=== PATIENT | male | born 1995 | race Caucasian/White ===

== ENCOUNTER 2016-12-06 12:11 | Emergency (ER) | payer OTHER ==
[2016-12-06 12:44] VITALS: BP 123/65
--- NOTE | 2016-12-06 12:54 | UC ---
Respiratory Complaint HPI - HPI Summary HPI Summary: 5 days of nasal congestion and cough worse beging last night---also has had a cold sore for a few days that he would like treated - History of Current Complaint Chief Complaint: UCRespiratory Stated Complaint: CHEST CONGESTION,COUGH,SORE THROAT,SINUS Time Seen by Provider: 12/06/16 12:53 Hx Obtained From: Patient Onset/Duration: Gradual Onset, Lasting Days - 5, Worse Since - this am Timing: Constant Severity Initially: Mild Severity Currently: None Pain Intensity: 3 Pain Scale Used: 0-10 Numeric Character: Cough: Nonproductive Aggravating Factors: Nothing Alleviating Factors: Nothing Associated Signs And Symptoms: Positive: Pleuritic Chest Pain, Nasal Congestion , Sinus Discomfort Related History: Seasonal Allergies - Allergies/Home Medications Allergies/Adverse Reactions: Allergies Allergy/AdvReac Type Severity Reaction Status Date / Time No Known Allergies Allergy Verified 12/06/16 12:31 PMH/Surg Hx/FS Hx/Imm Hx Previously Healthy: Yes - Surgical History Surgical History: None - Family History Known Family History: Positive: None Family History: no cardiovascular issues in family lineage - Social History Occupation: Employed Full-time Lives: With Family Alcohol Use: Weekly Substance Use Type: None Smoking Status (MU): Never Smoked Tobacco Review of Systems Constitutional: Negative Skin: Negative Eyes: Negative ENT: Nasal Discharge Respiratory: Cough Cardiovascular: Negative Gastrointestinal: Negative Genitourinary: Negative Motor: Negative Neurovascular: Negative Musculoskeletal: Negative Neurological: Negative Psychological: Negative All Other Systems Reviewed And Are Negative: Yes Physical Exam Triage Information Reviewed: Yes Appearance: Well-Appearing, No Pain Distress, Well-Nourished Vital Signs: Initial Vital Signs Temp 98.8 F 12/06/16 12:28 Pulse 62 12/06/16 12:28 Resp 14 12/06/16 12:28 BP 123/65 12/06/16 12:28 Pulse Ox 100 12/06/16 12:28 Vital Signs Reviewed: Yes Eye Exam: Normal Eyes: Positive: Conjunctiva Clear ENT Exam: Normal ENT: Positive: Normal ENT inspection, Hearing grossly normal, Pharynx normal, TMs normal. Negative: Nasal congestion, Nasal drainage, Tonsillar swelling, Tonsillar exudate, Trismus, Muffled/hoarse voice Dental Exam: Normal Neck exam: Normal Neck: Positive: Supple, Nontender, No Lymphadenopathy Respiratory Exam: Normal Respiratory: Positive: Chest non-tender, Lungs clear, Normal breath sounds, No respiratory distress, No accessory muscle use Cardiovascular Exam: Normal Cardiovascular: Positive: RRR, No Murmur, Pulses Normal, Brisk Capillary Refill Musculoskeletal Exam: Normal Musculoskeletal: Positive: Strength Intact, ROM Intact, No Edema Neurological Exam: Normal Neurological: Positive: Alert, Muscle Tone Normal Psychological Exam: Normal Skin Exam: Other Skin: Positive: Other - single cold sore left side of lower lip UC Diagnostic Evaluation - Laboratory O2 Sat by Pulse Oximetry: 100 Respiratory Course/Dx - Course Course Of Treatment: valtex, flonase, albuterol if sx worsen are fail to improve with treatment at day 10 with sx patient may start antibiodic - Differential Dx/Diagnosis Differential Diagnosis/HQI/PQRI: Bronchitis, Lower Resp Infection, Sinusitis, Tuberculosis Provider Diagnoses: Allergic Rhinnitis, HSV1 Discharge - Discharge Plan Condition: Stable Disposition: HOME Prescriptions: Albuterol HFA INHALER* [Ventolin HFA Inhaler*] 2 puff INH Q6H PRN #1 mdi PRN Reason: cough/chest congestion Amoxicillin/Clavulanate TAB* [Augmentin TAB 875*] 875 mg PO BID #20 tab Fluticasone NASAL SPRAY 50MCG* [Flonase NASAL SPRAY 50MCG*] 2 spray BOTH NARES DAILY #1 btl ValACYclovir (*) [Valtrex 1 GM(*)] 2 gm PO BID #4 tab Patient Education Materials: How to Use a Metered-Dose Inhaler (ED), Allergic Rhinitis (ED), Oral Herpes Simplex Virus Infections (ED), How to Use Nasal [place] (ED) Referrals: [facility] [Outside] - If Needed Non Staff,Doctor [Primary Care Provider] -
== END 2016-12-06 13:12 | disposition home or self-care (01) ==
LOC: EDBD → UCCORT 12:11
DX: J30.9 Allergic rhinitis, unspecified (principal); B00.1 Herpesviral vesicular dermatitis
CPT/HCPCS: 99202; G0463